=== PATIENT | male | born 1990 | race American Indian/Alaskan Native ===

== ENCOUNTER 2019-05-31 05:56 | Emergency (ER) | payer SELFPAY ==
[2019-05-31] MEDS ORDERED: IBUPROFEN PO ONE (08:29)
[2019-05-31] MEDS ORDERED: FLEXERIL PO ONE (08:29)
--- NOTE | 2019-05-31 08:39 | Emergency Department Report ---
HPI - General Chief Complaint: Extremity Injury, Lower Time Seen by Provider: 05/31/19 08:28 - HPI HPI: 29 yo AA male comes to ER with low back pain that rad to both legs and around to the front of his pelvis. Pain is worse with movement. No fall or trauma. Pt lives alone. Pain started yesterday, he took motrin, and tried to walk to the store but it hurt so bad he fell to the ground. No prior back injury. No fever or chills. Pain does not wake him from sleep. No incontinence or saddle parasthesia. No dysuria or penile discharge. pos cig/etoh denies drugs Pos HIV; undetectable; takes [address] Maya is ID MD mom and dad alive and well. ED Past Medical Hx - Past Medical History Previous Medical History?: Yes Hx HIV: Yes - Surgical History Past Surgical History?: No - Family History Family history: no significant - Social History Smoking Status: Current Every Day Smoker Substance Use Type: Alcohol, Marijuana - Medications Home Medications: Home Medications Medication Instructions Recorded Confirmed Last Taken Type Cyclobenzaprine [Flexeril] 10 mg PO TID PRN #10 tablet 05/31/19 Unknown Rx Ibuprofen [Motrin] 800 mg PO Q8HR PRN #30 tablet 05/31/19 Unknown Rx predniSONE [Deltasone] 20 mg PO DAILY #5 tablet 05/31/19 Unknown Rx ED Review of Systems ROS: Stated complaint: LOWER BACK PAIN Other details as noted in HPI Comment: All other systems reviewed and negative Physical Exam - Physical Exam Vital Signs: Vital Signs 05/31/19 05/31/19 06:19 08:05 Temperature 98.2 F Pulse Rate 81 Respiratory 18 95 H Rate Blood Pressure 133/80 Blood Pressure 134/76 [Left] O2 Sat by Pulse 96 Oximetry Physical Exam: alert and oriented no focal neuro deficit ambulatory but with pain- his lbp is lumbar and worse with movement pos left straight leg raise abd snt no cva tenderness no spine tenderness no fever no tachycardia no hypotension DP plus 2 bilateral ED Course Vital Signs 05/31/19 05/31/19 06:19 08:05 Temperature 98.2 F Pulse Rate 81 Respiratory 18 95 H Rate Blood Pressure 133/80 Blood Pressure 134/76 [Left] O2 Sat by Pulse 96 Oximetry ED Medical Decision Making - Lab Data Result diagrams: 05/31/19 08:39 05/31/19 08:39 - Radiology Data Radiology results: report reviewed, image reviewed - Medical Decision Making Lab Results 05/31/19 05/31/19 Range/Units 08:39 08:39 WBC 6.5 (4.5-11.0) K/mm3 RBC 4.09 (3.65-5.03) M/mm3 Hgb 12.6 (11.8-15.2) gm/dl Hct 37.2 (35.5-45.6) % MCV 91 (84-94) fl MCH 31 (28-32) pg MCHC 34 (32-34) % RDW 17.2 H (13.2-15.2) % Plt Count 181 (140-440) K/mm3 Lymph % (Auto) 36.4 H (13.4-35.0) % [place] % (Auto) 7.1 (0.0-7.3) % Eos % (Auto) 5.2 H (0.0-4.3) % Baso % (Auto) 0.5 (0.0-1.8) % Lymph # 2.4 (1.2-5.4) K/mm3 [place] # 0.5 (0.0-0.8) K/mm3 Eos # 0.3 (0.0-0.4) K/mm3 Baso # 0.0 (0.0-0.1) K/mm3 Seg Neutrophils % 50.8 (40.0-70.0) % Seg Neutrophils # 3.3 (1.8-7.7) K/mm3 Sodium 137 (137-145) mmol/L Potassium 4.0 (3.6-5.0) mmol/L Chloride 101.8 (98-107) mmol/L Carbon Dioxide 22 (22-30) mmol/L Anion Gap 17 mmol/L BUN 7 L (9-20) mg/dL Creatinine 0.9 (0.8-1.5) mg/dL Estimated GFR > 60 ml/min BUN/Creatinine Ratio 8 % Glucose 104 H (75-100) mg/dL Calcium 8.9 (8.4-10.2) mg/dL Vital Signs 05/31/19 05/31/19 06:19 08:05 Temperature 98.2 F Pulse Rate 81 Respiratory 18 95 H Rate Blood Pressure 133/80 Blood Pressure 134/76 [Left] O2 Sat by Pulse 96 Oximetry - Differential Diagnosis lumbar pain - musculoskeletal Critical care attestation.: If time is entered above; I have spent that time in minutes in the direct care of this critically ill patient, excluding procedure time. ED Disposition Clinical Impression: Lumbar back pain Disposition: DC-01 TO HOME OR SELFCARE Is pt being admited?: No Does the pt Need Aspirin: No Condition: Stable Instructions: Lumbar Radiculopathy (ED) Additional Instructions: FOLLOW UP WITH ORTHO MD REFERRAL BELOW MEDS ORDERED WARM COMPRESSES WILL HELP WITH PAIN Referrals: [facility] [Outside] - 3-5 Days PRIMARY CARE, [Primary Care Provider] - 3-5 Days PATRICIA DE LA FUENTE MD [Staff Physician] - 3-5 Days Time of Disposition: 09:20
[2019-05-31 08:51] LABS: Basophils % (Auto) 0.5 % (0.0-1.8); Eosinophils # (Auto) 0.3 K/mm3 (0.0-0.4); Eosinophils % (Auto) 5.2 % (0.0-4.3); Hematocrit 37.2 % (35.5-45.6); Hemoglobin 12.6 gm/dl (11.8-15.2); Lymphocytes # (Auto) 2.4 K/mm3 (1.2-5.4); Lymphocytes % (Auto) 36.4 % (13.4-35.0); Mean Corpuscular HGB Conc 34 % (32-34); Mean Corpuscular Volume 91 fl (84-94); Monocytes # (Auto) 0.5 K/mm3 (0.0-0.8); Monocytes % (Auto) 7.1 % (0.0-7.3); Platelet Count 181 K/mm3 (140-440); Red Blood Count 4.09 M/mm3 (3.65-5.03); Red Cell Distribution Width 17.2 % (13.2-15.2)
[2019-05-31 09:10] LABS: BUN/Creatinine Ratio 8; Blood Urea Nitrogen 7 mg/dL (9-20); Calcium 8.9 mg/dL (8.4-10.2); Hemolysis Index 11
[2019-05-31] MEDS ORDERED: DECADRON IM ONE (09:46)
[2019-05-31] MEDS ORDERED: NORCO 5/325 PO ONE (09:46)
[2019-05-31 10:42] LABS: Bilirubin,Urine NEG (Negative); Blood,Urine NEG (Negative); Color,Urine Straw (Yellow); Protein,Urine <15 mg/dL mg/dL (Negative); Urobilinogen,Urine < 2.0 mg/dL (<2.0); WBC,Urine < 1.0 /HPF (0.0-6.0)
--- NOTE | 2019-05-31 11:51 | Cat Scan Report ---
CT LUMBAR SPINE WITHOUT CONTRAST INDICATION / CLINICAL INFORMATION: Low back pain. TECHNIQUE: Axial CT images were obtained through the lumbar spine. Sagittal and coronal reformatted images were produced. All CT scans at this location are performed using CT dose reduction for ALARA by means of a utomated exposure control. COMPARISON: None available. FINDINGS: TRAUMA:There is no indication of fracture or traumatic subluxation. ALIGNMENT: Mild rightward curvature of the lumbar spine. No significant abnormality. VERTEBRAE: No indication of fracture or bone destruction. DISC SPACES: Decreased disc height is noted at the L4-5 level. LEVEL BY LEVEL ANALYSIS: L1-2:No abnormality. L2-3:No abnormality. L3-4: Moderate central disc protrusion flattens the thecal sac slightly. Central spinal canal and zaira roforamina are adequately maintained. L4-5: Evidence of central and right paracentral disc extrusion with thecal sac deformity and compress ion of the right L5 nerve root in its lateral recess. Central spinal canal and neuroforamina are adeq uate in size. L5-S1: Broad-based disc bulge. Central spinal canal and neuroforamina are adequately maintained. SPINAL CANAL: No indication of bony canal stenosis. SACRUM:Sacrum was largely excluded from this examination. The study includes the cephalad aspect of t he S2 vertebral body. No abnormalities are seen. PARASPINAL SOFT TISSUES: No significant abnormality. IMPRESSION: 1. Moderate central and right paracentral disc extrusion at L4-5. This is associated with thecal sac deformity and compression of the right L5 nerve root in its lateral recess. 2. Moderate central disc protrusion L3-4. This is associated with mild thecal sac deformity. Signer Name: Armaan Mancilla MD Signed: 05/31/2019 11:46 AM Workstation Name: [id number]
[2019-05-31 13:22] VITALS: BP 143/80
== END 2019-05-31 13:22 | disposition home or self-care (01) ==
LOC: ED 05:56
DX: M54.5 Low back pain (principal); F17.200 Nicotine dependence, unspecified, uncomplicated; F12.10 Cannabis abuse, uncomplicated; Z21 Asymptomatic human immunodeficiency virus [HIV] infection status
CPT/HCPCS: 36415; 72131; 80048; 81001; 85025; 96372; 99284; J1100